=== PATIENT | male | born 1995 | race Caucasian/White ===

== ENCOUNTER 2017-10-20 03:19 | Emergency (ER) | payer SELFPAY ==
[2017-10-20 03:28] VITALS: BP 105/70; PULSE 74; RESP 16; TEMP 98.4
[2017-10-20] MEDS ORDERED: predniSONE 50 MG TAB PO STA (03:43)
[2017-10-20] MEDS ORDERED: diphenhydrAMINE 25 MG CAP PO STA (03:43)
[2017-10-20] MEDS ORDERED: FAMOTIDINE 20 MG TAB PO STA (03:43)
--- NOTE | 2017-10-20 03:49 | ED ---
Skin/Abscess/FB HPI - General Chief complaint: Skin/Abscess/Foreign Body Stated complaint: rash Time Seen by Provider: 10/20/17 03:40 Source: patient, RN notes reviewed Mode of arrival: ambulatory Limitations: no limitations - History of Present Illness Initial comments: This is a 22-year-old male who presents to the emergency department with chief complaint of rash. Patient states that when he came out of work at 1 a.m. this morning he noticed a rash on the sides of his abdomen. He states that when he went home to lie down the rash seemed to spread. He states that it is on his arms, upper thighs, back and abdomen/chest. He states the rash is extremely itchy. He denies any new medications or foods. States that he has recently changed new laundry detergents. Denies new soaps or lotions. Denies any difficulty breathing or swallowing. Denies fevers or chills, chest pain or shortness of breath, abdominal pain, nausea or vomiting, dizziness or headache. - Related Data Previous Rx's Medication Instructions Recorded Famotidine [Pepcid] 20 mg PO BID #8 tablet 10/20/17 diphenhydrAMINE HCL [Benadryl] 25 mg PO BID #8 tab 10/20/17 predniSONE 20 mg PO BID #8 tab 10/20/17 Allergies Allergy/AdvReac Type Severity Reaction Status Date / Time amoxicillin Allergy Unknown Verified 10/20/17 03:28 Childhood Review of Systems ROS Statement: Those systems with pertinent positive or pertinent negative responses have been documented in the HPI. ROS Other: All systems not noted in ROS Statement are negative. Past Medical History Past Medical History: No Reported History History of Any Multi-Drug Resistant Organisms: None Reported Past Surgical History: No Surgical Hx Reported Past Psychological History: No Psychological Hx Reported Smoking Status: Never smoker Past Alcohol Use History: Occasional Past Drug Use History: None Reported General Exam - General Exam Comments Initial Comments: General: Awake and alert, well-developed; in no apparent distress. HEENT: Head atraumatic, normocephalic. Pupils are equal, round and reactive to light. Extraocular movements intact. Oropharynx moist without erythema or exudate. Neck: Supple. Normal ROM. Cardiovascular: Regular rate and rhythm. No murmurs, rubs or gallops. Chest symmetrical. Respiratory: Lungs clear to auscultation bilaterally. No wheezes, rales or rhonchi. Normal respiratory effort with no use of accessory muscles. Musculoskeletal: Normal ROM, no tenderness bilateral upper and lower extremities. Ambulating normally. Skin: [place], warm and dry. Diffuse generalized urticarial lesions bilateral arms , trunk and proximal thighs. Neurological: Alert and oriented x3. CN II-XII grossly intact. Speech is fluent and answers are appropriate. No focal neuro deficits. Psychiatric: Normal mood and affect. No overt signs of depression or anxiety noted. Limitations: no limitations Course Vital Signs 10/20/17 03:25 Temperature 98.4 F Pulse Rate 74 Respiratory 16 Rate Blood Pressure 105/70 O2 Sat by Pulse 98 Oximetry Medical Decision Making - Medical Decision Making This is a 22-year-old male who presents to the emergency department with chief complaint of pruritic rash. Lesions are urticarial in appearance. Patient does admit to using new laundry detergent. Vital signs are stable and patient is in no acute distress. Denies any difficulty breathing or swallowing. Recommended Solu-Medrol, Pepcid and Benadryl. Patient refuses injectable medication. He states that he will take oral steroids. Patient given prednisone, Benadryl and Pepcid while in the emergency department. He will be discharged home with repeated doses of these medications. Patient is in agreement with plan and voices understanding. He will be discharged home at this time. All questions answered. Disposition Clinical Impression: Urticaria Disposition: HOME SELF-CARE Condition: Good Instructions: Urticaria (ED) Additional Instructions: Please take medications as prescribed. Please follow up with primary care provider within 1-2 days. Return to emergency department if symptoms should worsen or any concerns arise. Prescriptions: diphenhydrAMINE HCL [Benadryl] 25 mg PO BID #8 tab Famotidine [Pepcid] 20 mg PO BID #8 tablet predniSONE 20 mg PO BID #8 tab Is patient prescribed a controlled substance at d/c from ED?: No Referrals: None,Stated [Primary Care Provider] - 1-2 days Time of Disposition: 03:49
== END 2017-10-20 04:02 | disposition home or self-care (01) ==
LOC: EC 03:19
DX: L50.9 Urticaria, unspecified (principal); Z88.0 Allergy status to penicillin
CPT/HCPCS: 99282; J7512